=== PATIENT | male | born 1975 | race Caucasian/White ===

== ENCOUNTER 2017-07-08 19:54 | Emergency (ER) | payer SELFPAY ==
[~2017-07-08] VITALS: Ht 188 cm; Wt 89.8 kg
[~2017-07-08 19:54] MED LIST: ACCUNEB SO1.25 MG/1 INH; COZAAR 25 MG TA25 M1 PO; DUONEB 2.5-0.5 M3 ML INH; LEVAQUIN 750 M750 MG PO; MUCINEX TA600 MG/TA1 PO; PREDNISONE 10 M10 MG PO; PREDNISONE 20 M20 M1 PO; PROZAC10 M1 PO; SINGULAIR 10 MG10 M1 PO
[2017-07-08] MEDS ORDERED: PROAIR HFA8.5 GM INH (20:08)
[2017-07-08 21:02] LABS: ABSOLUTE EOSINOPHILS 0.6 thou/uL (0.0-0.7); ABSOLUTE LYMPHOCYTES 2.2 thou/uL (0.8-5.3); ABSOLUTE MONOCYTES 0.7 thou/uL (0.0-1.2); BASOPHILS 0.2 %; EOSINOPHILS 5.5 %; HEMATOCRIT 52.1 % (42.0-52.0); LYMPHOCYTES 20.8 %; MCH 31.3 pg (26.0-34.0); MCHC 34.5 g/dL (28.0-37.0); MCV 90.8 fL (80.0-100.0); MPV 8.4 fl. (7.2-11.1); NUCLEATED RBCS 0 /100WBC; PLATELET COUNT* 233 thou/uL (150-400); POLYS 66.5 %; RBC 5.74 mil/uL (4.50-6.00); RDW-CV 13.7 % (10.5-14.5); WBC 10.5 thou/uL (4.0-11.0)
[2017-07-08 21:11] LABS: CALCIUM 9.1 mg/dL (8.5-10.1); CREATININE 1.1 mg/dL (0.6-1.3); POTASSIUM 4.3 mmol/L (3.5-5.1)
[2017-07-08 21:16] LABS: ALBUMIN 3.9 g/dL (3.4-5.0); TOTAL BILIRUBIN 0.5 mg/dL (<0.1-1.0); TOTAL PROTEIN 7.6 g/dL (6.4-8.2)
[2017-07-08] MEDS ORDERED: DUONEB 2.5-0.5 M3 ML INH (22:42)
[2017-07-08] MEDS ORDERED: PULMICORT0.25 MG/3 INH (22:42)
[2017-07-08] MEDS ORDERED: PREDNISONE50 MG PO (22:42)
[2017-07-08 22:53] VITALS: BP 154/97
== END 2017-07-08 22:54 | disposition home or self-care (01) ==
LOC: M.ERS 19:54
PROVIDERS: Emergency Medicine
DX: J45.901 Unspecified asthma with (acute) exacerbation (principal); I10 Essential (primary) hypertension; F17.210 Nicotine dependence, cigarettes, uncomplicated; Z88.8 Allergy status to other drugs, medicaments and biological substances; Z88.0 Allergy status to penicillin

== ENCOUNTER 2018-03-27 01:27 | Emergency (ER) | payer OTHER ==
[~2018-03-27] VITALS: Ht 185.4 cm; Wt 89.4 kg
[~2018-03-27 01:27] MED LIST changes: +PREDNISONE50 MG PO; +PROAIR HFA8.5 GM INH; +PULMICORT0.25 MG/3 INH
[2018-03-27] MEDS ORDERED: PREDNISONE 10 M10 M1 PO (02:59)
[2018-03-27] MEDS ORDERED: IPRAT-ALBUT 0.5-3 ML INH (03:14)
[2018-03-27 03:15] VITALS: BP 126/90
== END 2018-03-27 03:15 | disposition home or self-care (01) ==
LOC: M.ERS 01:27
DX: J45.901 Unspecified asthma with (acute) exacerbation (principal); I10 Essential (primary) hypertension; F17.210 Nicotine dependence, cigarettes, uncomplicated; Z88.0 Allergy status to penicillin; Z88.8 Allergy status to other drugs, medicaments and biological substances

== ENCOUNTER 2018-04-24 19:40 | Emergency (ER) | payer OTHER ==
[~2018-04-24] VITALS: Ht 185.4 cm; Wt 87.1 kg
[~2018-04-24 19:40] MED LIST changes: +IPRAT-ALBUT 0.5-3 ML INH; +PREDNISONE 10 M10 M1 PO
[2018-04-24] MEDS ORDERED: PULMICORT0.25 MG/3 INH (19:53)
[2018-04-24 20:29] LABS: ABSOLUTE BASOPHILS 0.2 thou/uL (0.0-0.2); ABSOLUTE EOSINOPHILS 0.4 thou/uL (0.0-0.7); ABSOLUTE LYMPHOCYTES 2.4 thou/uL (0.8-5.3); ABSOLUTE MONOCYTES 1.4 thou/uL (0.0-1.2); ABSOLUTE NEUTROPHILS 11.7 thou/uL (1.6-8.1); EOSINOPHILS 2.8 %; HEMOGLOBIN 17.6 gm/dL (14.0-18.0); LYMPHOCYTES 14.9 %; MCH 31.1 pg (26.0-34.0); MCHC 33.8 g/dL (28.0-37.0); MCV 92.1 fL (80.0-100.0); MONOCYTES 8.5 %; MPV 8.3 fl. (7.2-11.1); NUCLEATED RBCS 0 /100WBC; PLATELET COUNT* 216 thou/uL (150-400); POLYS 72.8 %; RBC 5.64 mil/uL (4.50-6.00); RDW-CV 13.9 % (10.5-14.5)
[2018-04-24 20:37] LABS: CALCIUM 9.9 mg/dL (8.5-10.1); CREATININE 1.2 mg/dL (0.6-1.3); POTASSIUM 4.2 mmol/L (3.5-5.1)
[2018-04-24] MEDS ORDERED: PREDNISONE50 MG PO (22:20)
[2018-04-24 22:41] VITALS: BP 143/82
== END 2018-04-24 22:42 | disposition home or self-care (01) ==
LOC: M.ERS 19:40
PROVIDERS: Emergency Medicine
DX: J45.901 Unspecified asthma with (acute) exacerbation (principal)